=== PATIENT | female | born 1990 | race Caucasian/White ===

== ENCOUNTER 2020-09-14 22:04 | Inpatient (IN) | payer OTHER ==
[2020-09-14] MEDS ORDERED: FENTANYL PF 100 MCG/2ML ONE (22:38)
[2020-09-14] MEDS ORDERED: OXYTOCIN 30U/ 0.9% NaCL 500ML 500 ML ONE (22:43)
[2020-09-14] MEDS ORDERED: SODIUM CITRATE/CITRIC ACID 15 ML UDC ONE (22:43)
[2020-09-14] MEDS ORDERED: NEWBORN KIT ONE (22:43)
[2020-09-14] MEDS ORDERED: METOCLOPRAMIDE 5 MG/ML, 2ML ONE (22:43)
[2020-09-14 22:53] VITALS: BP 111/67
[2020-09-14] MEDS ORDERED: METOCLOPRAMIDE 5 MG/ML, 2ML IV ONE (23:00)
[2020-09-14] MEDS ORDERED: SODIUM CITRATE/CITRIC ACID 30 ML UDC PO ONE (23:00)
[2020-09-14] MEDS ORDERED: CEFAZOLIN PMX 1GM/50ML 50 ML IVPB ONE (23:00)
[2020-09-14] MEDS ORDERED: LACTATED RINGERS 1,000 ML IVBOLUS ONE (23:00)
[2020-09-14] MEDS ORDERED: FENTANYL PF 100 MCG/2ML IVPush PRN (23:00)
[2020-09-14] MEDS ORDERED: ONDANSETRON 2MG/ML, 2ML IVPush ONE (23:00)
[2020-09-14 23:15] LABS: BASOPHILS % (AUTO) 0 % (0-1); EOSINOPHILS % (AUTO) 0 % (1-7); LYMPHOCYTES % (AUTO) 19 % (22-44); MEAN CORPUSCULAR HEMOGLOBIN 27.9 pg (27.0-34.8); MEAN CORPUSCULAR HGB CONC 33.2 g/dL (32.4-35.8); MONOCYTES % (AUTO) 4 % (2-9); NEUTROPHILS % (AUTO) 77 % (42-75); PLATELET COUNT 198 x10^3/uL (130-400); RED BLOOD COUNT 4.19 x10^6/uL (3.82-5.3); RED CELL DISTRIBUTION WIDTH 13.6 % (9.6-15.2)
[2020-09-14 23:24] LABS: MD NO
[2020-09-14] MEDS ORDERED: FENTANYL/BUPIV./NS/PF 250 ML EPIDCONT ONE (23:48)
[2020-09-14] MEDS ORDERED: BUPIVACAINE 0.25% ONE (23:48)
[2020-09-15] MEDS ORDERED: PENICILLIN GK 5,000,000 UNITS in DEXTROSE 5% 100 ML IVPB ONE
[2020-09-15] MEDS ORDERED: PENICILLIN GK 2,500,000 UNITS in DEXTROSE 5% 100 ML IVPB SCH (02:00)
[2020-09-15] MEDS ORDERED: BUPIVACAINE 0.25% ONE (03:25)
[2020-09-15] MEDS: OXYTOCIN 30U/ 0.9% NaCL 500ML 500 ML IV SCH ×2 (04:00→19:40)
[2020-09-15] MEDS ORDERED: MISOPROSTOL 200 MCG TABLET PR PRN (04:30)
[2020-09-15] MEDS ORDERED: CARBOPROST TROMETHAMINE 250 MCG/ML, 1ML IM PRN (04:30)
[2020-09-15] MEDS ORDERED: SIMETHICONE 80 MG CHEW TAB PO PRN (04:30)
[2020-09-15] MEDS ORDERED: METHYLERGONOVINE 0.2 MG/ML IM PRN (04:30)
[2020-09-15] MEDS ORDERED: OXYcodone/APAP 5/325MG TABLET PO PRN (04:30)
[2020-09-15] MEDS ORDERED: ACETAMINOPHEN 325 MG TABLET PO PRN ×2 (04:30)
[2020-09-15] MEDS ORDERED: DIPH,PERTUSS(ACELL),TET VAC/PF NC IM-VACC PRN (04:30)
[2020-09-15 08:30] VITALS: BP 112/73
[2020-09-15] MEDS: PRENATAL VIT/IRON/FA 1 EACH TABLET PO SCH (08:35)
[2020-09-15] MEDS: OXYcodone/APAP 5/325MG TABLET PO PRN (08:35)
[2020-09-15] MEDS: IBUPROFEN 600 MG TABLET PO PRN ×2 (11:40→17:38)
[2020-09-15 12:09] LABS: BASOPHILS % (AUTO) 0 % (0-1); EOSINOPHILS % (AUTO) 0 % (1-7); LYMPHOCYTES % (AUTO) 15 % (22-44); MEAN CORPUSCULAR HEMOGLOBIN 27.9 pg (27.0-34.8); MEAN CORPUSCULAR HGB CONC 33.1 g/dL (32.4-35.8); MEAN PLATELET VOLUME 9.7 fL (7.4-10.4); MONOCYTES % (AUTO) 4 % (2-9); NEUTROPHILS % (AUTO) 80 % (42-75); PLATELET COUNT 178 x10^3/uL (130-400); RED BLOOD COUNT 3.97 x10^6/uL (3.82-5.3); RED CELL DISTRIBUTION WIDTH 13.6 % (9.6-15.2)
[2020-09-15 12:11] LABS: MD NO
[2020-09-15 13:21] VITALS: BP 104/71
[2020-09-15] MEDS: DOCUSATE 100 MG CAPSULE PO PRN (17:39)
[2020-09-15 17:51] VITALS: BP 117/74
[2020-09-15 19:55] VITALS: BP 108/74
[2020-09-16] MEDS: OXYTOCIN 30U/ 0.9% NaCL 500ML 500 ML IV SCH ×3 (00:30→20:30)
[2020-09-16 01:50] VITALS: BP 110/85
[2020-09-16] MEDS: IBUPROFEN 600 MG TABLET PO PRN ×3 (01:57→23:25)
[2020-09-16 08:35] VITALS: BP 104/73
[2020-09-16] MEDS: PRENATAL VIT/IRON/FA 1 EACH TABLET PO SCH (09:00)
[2020-09-16] MEDS: DOCUSATE 100 MG CAPSULE PO PRN ×2 (12:15→23:25)
[2020-09-16] MEDS: OXYcodone/APAP 5/325MG TABLET PO PRN ×2 (12:15→23:26)
[2020-09-16 19:15] VITALS: BP 111/74
[2020-09-17] MEDS: OXYTOCIN 30U/ 0.9% NaCL 500ML 500 ML IV SCH (00:08)
[2020-09-17 07:30] VITALS: BP 115/76
[2020-09-17] MEDS: PRENATAL VIT/IRON/FA 1 EACH TABLET PO SCH (09:54)
[2020-09-17] MEDS: IBUPROFEN 600 MG TABLET PO PRN (09:54)
[2020-09-17] MEDS ORDERED: IBUP-1222 PO (11:58)
== END 2020-09-17 14:55 | disposition home or self-care (01) | DRG 807 ==
LOC: LDOP 22:04 → LDIP 22:28 → 2NW 09-15 06:19
PROVIDERS: ADMIT Obstetrics & Gynecology; ATTEND Obstetrics & Gynecology
PROC: 10E0XZZ Delivery of Products of Conception, External Approach (ICD-10-PCS; principal; 2020-09-15)
PROC: 0KQM0ZZ Repair Perineum Muscle, Open Approach (ICD-10-PCS; 2020-09-15)
PROC: 3E0R3BZ Introduction of Anesthetic Agent into Spinal Canal, Percutaneous Approach (ICD-10-PCS; 2020-09-15)
PROC: 00HU33Z Insertion of Infusion Device into Spinal Canal, Percutaneous Approach (ICD-10-PCS; 2020-09-15)
DX: O99.824 Streptococcus B carrier state complicating childbirth (principal); Z37.0 Single live birth; O34.211 Maternal care for low transverse scar from previous cesarean delivery; O70.1 Second degree perineal laceration during delivery; Z30.2 Encounter for sterilization; Z3A.38 38 weeks gestation of pregnancy; O99.02 Anemia complicating childbirth; D50.9 Iron deficiency anemia, unspecified
CPT/HCPCS: 36415; 85025; 86592; 86850; 86900; G0378; J2540; J3010; J2590

== ENCOUNTER → 2020-09-14 | Outpatient (CLI) | payer OTHER | END | disposition home or self-care (01) | LOC: STAR 11:12 | PROVIDERS: ATTEND Obstetrics & Gynecology | DX: Z20.822 Contact with and (suspected) exposure to COVID-19 (principal) | CPT/HCPCS: U0003; U0005 ==